=== PATIENT | male | born 1965 | race Two or more races ===

== ENCOUNTER 2018-07-30 19:21 | Emergency (ER) | payer BC ==
[~2018-07-30] VITALS: Ht 165.1 cm; Wt 81.6 kg
[2018-07-31] MEDS ORDERED: CELEBREX100 MG PO (08:14)
== END 2018-07-31 09:07 | disposition home or self-care (01) ==
LOC: ER 19:21
DX: S00.83XA Contusion of other part of head, initial encounter (principal); R55 Syncope and collapse; V18.2XXA Unspecified pedal cyclist injured in noncollision transport accident in nontraffic accident, initial encounter; Y93.02 Activity, running; Y92.89 Other specified places as the place of occurrence of the external cause; Y99.8 Other external cause status